=== PATIENT | female | born 2000 | race Caucasian/White ===

== ENCOUNTER 2022-01-25 12:56 | Day surgery (SDC) | payer OTHER, SELFPAY ==
[2022-01-25] VITALS (9 sets, daily range): BP systolic 111–155; BP diastolic 63–86; PULSE 73–119; RESP 12–22; TEMP 36.2–36.9; O2SAT 97–100
--- NOTE | ~2022-01-25 | CT_ITS ---
EXAMINATION: CT abdomen pelvis w con DATE: 01/25/2022 15:06 INDICATION: Abdominal pain radiating to right side. Right lower quadrant abdominal pain, nausea and v omiting TECHNIQUE: Computed tomography (CT) of the abdomen and pelvis was performed with 100 CC Omnipaque 350 intravenous contrast. Automated exposure control and iterative reconstruction technique were employe d. Exam dose: 269.73 mGy-cm total exam DLP. COMPARISON: None. FINDINGS: The lung bases are clear of infiltrate or consolidation. Normal heart size. No pericardial or pleural effusion. The liver, gallbladder, bile ducts, spleen, pancreas, pancreatic duct, and adrenal glands and kidneys are unremarkable. Normal caliber of the abdominal aorta. No intraperitoneal or retroperitoneal or pe lvic mass lesion or adenopathy or ascites. The urinary bladder and uterus are unremarkable other than some fluid in the endometrial cavity likely related to menstruation.. Bilateral ovarian follicles, t he largest measuring up to 2 cm on the left. Minimal likely physiologic free fluid in the posterior c ul-de-sac. There is a 5 mm appendicolith. There is thickening of the wall of the appendix and appendiceal diamet er up to approximately 8.8 mm. Findings are consistent with acute appendicitis. No appendiceal absces s or intraperitoneal free air is detected. There is a prominent amount of fecal material throughout the rectum and colon. No bowel obstruction o r intraperitoneal free air. Included skeletal structures are unremarkable. IMPRESSION: Appendicolith and acute appendicitis Reviewed, dictated and finalized at [facility]. Reviewed, dictated and finalized at [facility].
[2022-01-25 13:15] LABS: Basophils Absolute Auto 0.1 K/mm3 (0.0-0.1); Basophils Percent Auto 0.6 % (0.2-1.2); Eosinophils Absolute Auto 0.1 K/mm3 (0-0.3); Eosinophils Percent Auto 0.8 % (0-4.4); Hemoglobin 12.8 g/dL (12.0-15.0); Immature Granulocyte Absolute 0.03 K/mm3 (0.00-0.031); Immature Granulocyte Percent A 0.3 % (0-0.5); Lymphocytes Absolute Auto 1.65 K/mm3 (0.9-3.2); Lymphocytes Percent Auto 13.9 % (18.3-44.2); Mean Corpuscular Hemoglobin 26.9 pg (26-34); Mean Platelet Volume 11.1 fl (7.4-10.4); Monocytes Absolute Auto 0.9 K/mm3 (0.1-0.6); Monocytes Percent Auto 7.4 % (2.6-8.5); Neutrophils Absolute Auto 9.2 K/mm3 (1.3-6.7); Platelet Count Result 217 k/mm3 (150-375); Red Blood Count 4.76 M/mm3 (4.2-5.4); Red Cell Distribution Width 14.5 % (11.5-14.5); White Blood Count 11.9 K/mm3 (4.5-10.0)
[2022-01-25 13:23] LABS: Alanine Aminotransferase 12 U/L (6-35); Albumin Level 4.9 g/dL (3.7-5.6); Alkaline Phosphatase 59 U/L (45-116); Anion Gap 9 mmol/L (8-16); Aspartate Amino Transferase 23 U/L (14-36); Bilirubin,Total 0.5 mg/dL (0.2-1.3); Blood Urea Nitrogen 11 mg/dL (8-21); Calcium 9.5 mg/dL (8.9-10.7); Carbon Dioxide 26 mmol/L (22-30); Chloride 99 mmol/L (98-107); Estimated Glomerular Filt Rate > 60; Glucose 103 mg/dL (65-110); Lipase 48 U/L (23-300); Sodium 134 mmol/L (134-143)
[2022-01-25 14:22] LABS: Appearance Urine Slightly Cloudy (Clear); Bilirubin Urine Negative (Negative); Blood Urine Negative (Negative); Color Urine Yellow (Yellow); Glucose Urine UA Negative (Negative); Ketones Urine Negative (Negative); Leukocyte Esterase Ur Negative LEU/UL (Negative); Nitrate Urine Negative (Negative); Protein Urine Negative (Negative); Urobilinogen Urine 0.2 mg/dL (<2.0); pH Urine 7.5 (5.0-9.0)
[2022-01-25 14:30] LABS: Bacteria Urine 2+ /hpf; Mucus Urine Few /lpf; RBC Urine 0-2 /hpf (0-2); Squamous Epithelial Cell Urine Occasional /hpf (Few)
[2022-01-25 14:34] LABS: Add Urine Microscopic? YES
[2022-01-25] MEDS: SODIUM CHLORIDE 0.9% IV 1,000 ML 999 ML IV CONT (14:42)
[2022-01-25] MEDS: MORPHINE SULFATE (*CRX) 4 MG/ML INJ IV PUSH (14:43)
--- NOTE | 2022-01-25 15:45 | ED.ABDPAIN ---
HPI - Abdominal Pain General Chief Complaint: Abdominal Pain Stated Complaint: abd pain Time Seen by Provider: 01/25/22 14:14 History of Present Illness HPI narrative: Patient is a 21-year-old female who presents ER with abdominal pain. Started in the periumbilical area early this morning is more dense right lower quadrant. She has not been hungry. No fevers or chills or sweats. Pain is worse with movement. No diarrhea. Denies urinary frequency urgency or dysuria. Related Data Home Medications Medication Instructions Recorded Confirmed No Home Medications 01/25/22 01/25/22 Allergies Allergy/AdvReac Type Severity Reaction Status Date / Time No Known Allergies Allergy Mild Verified 06/29/17 18:11 Review of Systems Review of Systems: All systems reviewed & are unremarkable except as noted in HPI and below Constitutional: Constitutional: Denies chills and Denies fever(s) Cardiovascular: Cardiovascular: Denies chest pain, Denies rapid heart rate and Denies radiating jaw, neck or arm pain Respiratory: Respiratory: Denies cough and Denies dyspnea Gastrointestinal: Gastrointestinal: Reports abdominal pain, Denies constipation, Denies diarrhea, Denies nausea and Denies vomiting Musculoskeletal: Musculoskeletal: Denies back pain and Denies myalgias PMFSH Past Medical History Medical History (Updated 01/25/22 @ 17:20 by Garo Restrepo MD) Healthy female adult Surgical History Surgical History (Updated 01/25/22 @ 17:20 by Garo Restrepo MD) No history of previous surgery Social History Social History (Updated 01/25/22 @ 17:20 by Garo Restrepo MD) Smoking status: Never smoker Exam Narrative: GENERAL: Well-appearing, well-nourished, and in no acute distress. HEAD: Normocephalic, atraumatic. NECK: Supple. CHEST: Clear to auscultation. No respiratory distress. HEART: Regular rate and rhythm. Normal peripheral pulses. ABDOMEN: Soft, tender palpation right lower quadrant with guarding, positive Rovsing sign, nondistended, normal active bowel sounds. EXTREMITIES: Normal range of motion. No edema. SKIN: Warm, dry, no rash. NEURO: Alert and oriented x3. PSYCH: Normal mood and affect. Course Course Emergency Course: Discussed with Dr. De La O. He will take patient to the OR this evening. Patient aware of plan. She had 2 bites of a kolache at noon with a couple sips of water. Vital Signs Vital signs: Vital Signs Temperature 98.4 F 01/25/22 12:59 Pulse Rate 108 H 01/25/22 12:59 Respiratory Rate 20 01/25/22 12:59 Blood Pressure 155/68 H 01/25/22 12:59 Pulse Oximetry 98 01/25/22 12:59 Oxygen Delivery Room Air 01/25/22 12:59 Temperature 97.2 F L 01/25/22 16:36 Pulse Rate 96 01/25/22 16:36 Respiratory Rate 16 01/25/22 16:36 Blood Pressure 124/68 01/25/22 16:36 Pulse Oximetry 100 01/25/22 16:36 Oxygen Delivery Room Air 01/25/22 16:36 MDM - Abdominal Pain Lab Data Result diagrams: 01/25/22 13:07 01/25/22 13:07 Labs: Lab Results 01/25/22 01/25/22 01/25/22 Range/Units 13:07 13:07 14:16 WBC 11.9 H (4.5-10.0) K/mm3 RBC 4.76 (4.2-5.4) M/mm3 Hgb 12.8 (12.0-15.0) g/dL Hct 40.0 (37.0-47.0) % MCV 84.0 (80-100) fl MCH 26.9 (26-34) pg MCHC 32.0 (32-36) g/dl RDW 14.5 (11.5-14.5) % Plt Count 217 (150-375) k/mm3 MPV 11.1 H (7.4-10.4) fl Immature Gran % (Auto) 0.3 (0-0.5) % Neut % (Auto) 77.0 H (45.5-73.1) % Lymph % (Auto) 13.9 L (18.3-44.2) % [place] % (Auto) 7.4 (2.6-8.5) % Eos % (Auto) 0.8 (0-4.4) % Baso % (Auto) 0.6 (0.2-1.2) % Lymph # (Auto) 1.65 (0.9-3.2) K/mm3 [place] # (Auto) 0.9 H (0.1-0.6) K/mm3 Eos # (Auto) 0.1 (0-0.3) K/mm3 Baso # (Auto) 0.1 (0.0-0.1) K/mm3 Abs Immat Gran (auto) 0.03 (0.00-0.031) K/mm3 Absolute Neuts (auto) 9.2 H (1.3-6.7) K/mm3 Absolute Nucleated RBC 0.0 (0.0-0.012) K/mm3
--- NOTE | 2022-01-25 16:01 | WPDANESEPPF ---
Anes - Initial Pre Proc Eval Procedure: Operation Date: 01/25/22 17:30 Proposed Procedures p Laparoscopic Appendectomy - Oneil De La O DO <Fernando Gaston DO - Last Filed: 02/02/22 09:16> Date/Time: 01/25/22 16:01 <Fernando Gaston DO - Last Filed: 02/02/22 09:16> Pre Op Diagnosis: abd pain <Fernando Gaston DO - Last Filed: 02/02/22 09:16> Patient Data Age: 21 Gender: F Height: 1.57 m Weight: 60.1 kg <Fernando Gaston DO - Last Filed: 02/02/22 09:16> Last Vital Signs Temp 36.9 C 01/25/22 12:59 Pulse 96 01/25/22 14:18 Resp 14 01/25/22 14:18 BP 116/79 01/25/22 14:18 Pulse Ox 97 01/25/22 14:18 O2 Del Method Room Air 01/25/22 12:59 <Fernando Gaston DO - Last Filed: 02/02/22 09:16> Allergies Allergy/AdvReac Type Severity Reaction Status Date / Time No Known Allergies Allergy Mild Verified 06/29/17 18:11 <Fernando Gaston DO - Last Filed: 02/02/22 09:16> Home Medications Medication Instructions Recorded Confirmed Type hydrocodone 5 mg-acetaminophen 325 1 tablet PO Q4H PRN pain #10 tabs 01/25/22 Rx mg tablet <Fernando Gaston DO - Last Filed: 02/02/22 09:16> Laboratory Tests 01/25/22 01/25/22 01/25/22 13:07 13:07 14:16 WBC 11.9 K/mm3 H K/mm3 (4.5-10.0) RBC 4.76 M/mm3 M/mm3 (4.2-5.4) Hgb 12.8 g/dL g/dL (12.0-15.0) Hct 40.0 % % (37.0-47.0) MCV 84.0 fl fl (80-100) MCH 26.9 pg pg (26-34) MCHC 32.0 g/dl g/dl (32-36) RDW 14.5 % % (11.5-14.5) Plt Count 217 k/mm3 k/mm3 (150-375) MPV 11.1 fl H fl (7.4-10.4) Immature Gran % (Auto) 0.3 % % (0-0.5) Neut % (Auto) 77.0 % H % (45.5-73.1) Lymph % (Auto) 13.9 % L % (18.3-44.2) [place] % (Auto) 7.4 % % (2.6-8.5) Eos % (Auto) 0.8 % % (0-4.4) Baso % (Auto) 0.6 % % (0.2-1.2) Lymph # (Auto) 1.65 K/mm3 K/mm3 (0.9-3.2) [place] # (Auto) 0.9 K/mm3 H K/mm3 (0.1-0.6) Eos # (Auto) 0.1 K/mm3 K/mm3 (0-0.3) Baso # (Auto) 0.1 K/mm3 K/mm3 (0.0-0.1) Abs Immat Gran (auto) 0.03 K/mm3 K/mm3 (0.00-0.031) Absolute Neuts (auto) 9.2 K/mm3 H K/mm3 (1.3-6.7) Absolute Nucleated RBC 0.0 K/mm3 K/mm3 (0.0-0.012) Nucleated RBC % 0.0 % % (0.0-0.2) Sodium 134 mmol/L mmol/L (134-143) Potassium 4.0 mmol/L mmol/L (3.4-5.0) Chloride 99 mmol/L mmol/L (98-107) Carbon Dioxide 26 mmol/L mmol/L (22-30) Anion Gap 9 mmol/L mmol/L (8-16) BUN 11 mg/dL mg/dL (8-21) Creatinine 0.60 mg/dL L mg/dL (0.7-1.0) Estim Creat Clear Calc Not Reportable Estimated GFR > 60 (59 - ) Glucose 103 mg/dL mg/dL (65-110) Calcium 9.5 mg/dL mg/dL (8.9-10.7) Total Bilirubin 0.5 mg/dL mg/dL (0.2-1.3) AST 23 U/L U/L (14-36) ALT 12 U/L U/L (6-35) Alkaline Phosphatase 59 U/L U/L (45-116) Total Protein 8.0 g/dL g/dL (6.3-8.6) Albumin 4.9 g/dL g/dL (3.7-5.6) Lipase 48 U/L U/L (23-300) Urine Color Yellow (Yellow) Urine Appearance Slightly cloudy (Clear) Urine pH 7.5 (5.0-9.0) Ur Specific [place] 1.020 (1.001-1.035) Urine Protein Negative mg/dL mg/dL (Negative) Urine Glucose (UA) Negative mg/dL mg/dL (Negative) Urine Ketones Negative mg/dL mg/dL (Negative) Ur Blood (Man) Negative (Negative) Urine Nitrate Negative (Negative) Urine Bilirubin Negative (Negative) Urine Urobilinogen 0.2 mg/dL mg/dL (<2.0) Leukocyte Esterase Rfl Negative SUNDAY/UL SUNDAY/UL (Negative) Urine RBC 0-2 /hpf /hpf
[2022-01-25] MEDS: LACTATED RINGERS 1,000 ML 30 ML IV CONT ×2 (16:37→18:45)
--- NOTE | 2022-01-25 17:41 | PM.IMHP ---
H&P: HPI History of Present Illness Date/Time: 01/25/22 17:41 Chief Complaint: Right lower quadrant pain Narrative: This is a 21-year-old woman who presented to the emergency department this afternoon with complaints of right lower quadrant pain. Her pain started around 2:00 a.m. this morning. She did have some nausea and vomiting as well. Pain was near her umbilicus and then eventually localized to the right lower quadrant. She denies any fevers. She has never experienced symptoms like this in the past. Review of Systems Review of Systems: All systems reviewed & are unremarkable except as noted in HPI and below Constitutional: Constitutional: Denies chills and Denies fever(s) Eyes: Eyes: Denies change in vision ENT: Denies hearing loss, Denies neck pain and Denies sore throat Cardiovascular: Cardiovascular: Denies chest pain and Denies dyspnea Respiratory: Respiratory: Denies cough, Denies dyspnea and Denies wheezing Gastrointestinal: Gastrointestinal: Reports as per HPI Genitourinary: Genitourinary: Denies hematuria and Denies dysuria Musculoskeletal: Musculoskeletal: Denies arthralgias, Denies joint swelling and Denies neck pain Allergic/Immunologic: Allergic/Immunologic: Denies wheezing PMF Past Medical History Medical History (Updated 01/25/22 @ 17:20 by Garo Restrepo MD) Healthy female adult Surgical History Surgical History (Updated 01/25/22 @ 17:20 by Garo Restrepo MD) No history of previous surgery Family History Family History (Updated 01/25/22 @ 17:43 by Oneil De La O DO) Other No significant family history Social History Social History (Updated 01/25/22 @ 17:20 by Garo Restrepo MD) Smoking status: Never smoker Meds Home Medications and Allergies Home Medications Medication Instructions Recorded Confirmed Type No Home Medications 01/25/22 01/25/22 History Allergies Allergy/AdvReac Type Severity Reaction Status Date / Time No Known Allergies Allergy Mild Verified 06/29/17 18:11 Vital Signs Vital Signs - 24 hr 01/25/22 12:59 01/25/22 14:18 01/25/22 16:36 Temperature 36.9 C 36.2 C L Pulse Rate 108 H 96 96 Respiratory Rate 20 14 16 Blood Pressure 155/68 H 116/79 124/68 Pulse Oximetry 98 97 100 Oxygen Delivery Room Air Room Air Exam Const: General: alert; No acute distress Orientation/consciousness: patient oriented x3 Limitations: no limitations HENMT: Head: normocephalic and atraumatic Ears: hearing grossly normal bilaterally General nose exam: Normal external nose present and Normal nares present Mouth: Yes Normal oral and palatal mucosa present and Yes moist mucous membranes Eyes: General: appearance normal, both eyes and all related structures Conjunctivae: conjunctivae normal Sclera: sclerae normal Pupils: Equal, round and reactive pupils present EOM: EOMs intact bilaterally Neck: Neck: normal visual inspection, full ROM, no lymphadenopathy, supple and no JVD Lymphatic: no lymphadenopathy noted Chest: Chest palpation & inspection: normal inspection of the chest Resp: Effort & Inspection: normal respiratory effort and able to speak in complete sentences Auscultation: clear to auscultation bilaterally Percussion: percussion normal Cardio: Jugular venous distension: no JVD Rate: regular rate Rhythm: regular rhythm Heart sounds: S1 normal heart sound present and S2 normal heart sound present Peripheral pulses: Peripheral pulses 2+ throughout GI: Inspection: normal to inspection GI Palp: Yes Soft to palpation, Yes Tenderness to palpation present (GI) (Right lower quadrant), No Guarding due to palpation present (GI), No Hernia present and No Rebound tenderness present Percussion: Yes normal to percussion Auscultation: normal bowel sounds : General: Yes no CVA tenderness Back/Spine/Pelvis: Back: no CVA tenderness Skin: General skin exam: normal color and dry skin Neuro: General: patient oriented
--- NOTE | 2022-01-25 17:45 | WPDHPUPDATE1 ---
History and Physical Update Update Date/Time: 01/25/22 17:45 History and Physical has been reviewed, including an updated exam of the patient. There are NO changes in the patient's condition. Risks, benefits, and alternatives have been discussed and questions answered. Patient agrees to proceed with procedure.
[2022-01-25] MEDS: BUPIVACAINE/EPINEPHRINE 0.25% 50 ML VIAL 30 ML INFILTRATE (17:50)
--- NOTE | 2022-01-25 18:45 | W.PM.PROC2 ---
Procedure Note - Detailed Date of Procedure 01/25/22 Pre-op Diagnosis Acute appendicitis Post-op Diagnosis Same Procedure Performed Laparoscopic appendectomy Surgeon Oneil De La O, DO Anesthesia General and Local (0.5% bupivacaine with epinephrine) Indications This is a 21-year-old woman who presented to the emergency department today with right lower quadrant pain that started early this morning. She has never experienced symptoms like this in the past. CT in the emergency department showed evidence of acute appendicitis with an appendicolith. Discussions were made with the patient about treatment options and decision was made to proceed with urgent laparoscopic appendectomy, possible open. Findings Laparoscopic appendectomy was performed. The appendix appeared dilated and inflamed, but the base of the appendix appeared healthy and viable. There was no evidence of perforation or abscess. The appendix was removed and sent to the lab for pathology. Description of Procedure Procedure as well as risks, benefits, and alternatives were explained to the patient. The patient agreed to proceed. Written consent was obtained and placed in chart prior to procedure. The patient was brought back to surgical suite. She was placed supine on operating table. Time-out was done to confirm the patient and procedure. The patient was then intubated by the Anesthesia Department. Her abdomen was prepped and draped in sterile fashion using chlorhexidine prep. A 12 mm incision was made at the inferior portion of the umbilicus. Blunt dissection was carried out down to the linea alba. The linea alba was then incised using a 15 blade scalpel. Then bluntly entered into the peritoneal cavity. A 12 mm trocar was then inserted, and carbon dioxide insufflation was used to create a pneumoperitoneum. The camera was inserted and the abdomen was inspected. No immediate abnormalities were identified. The patient was then placed in slight Trendelenburg position and rotated to the left. A 5 mm incision was made in the suprapubic region in midline and a 5 mm trocar was inserted under direct visualization. A 5 mm incision was made in the left lower quadrant and a 5 mm trocar was inserted under direct visualization. The right lower quadrant was carefully inspected. The cecum was identified and then this was traced back to the appendix. The appendix was identified and grasped at the mesoappendix and lifted anteriorly. Careful blunt dissection was carried out at the base of the appendix through the mesoappendix using a [place] grasper. An Endo-YASIR 45 mm blue load stapler was then advanced across the base of the appendix and clamped and fired. A white reload was then clamped across the mesoappendix and fired. This freed up our appendix completely. It was then placed in an EndoCatch bag and removed through the umbilical port. The staple lines were then inspected. Hemostasis appeared adequate and the staple lines appeared secure. The area was then irrigated with sterile saline. The pelvis was then carefully inspected and irrigated with sterile saline as well and the remainder of the abdomen was carefully inspected. The patient was then flattened out in bed. One final inspection was made around the abdominal cavity and no other abnormalities were seen. The ports were then removed under direct visualization. The camera was removed and the pneumoperitoneum was released. The fascia of the umbilical incision was reapproximated using an 0 Vicryl [id number] suture. 0.5% bupivacaine with epinephrine was infiltrated locally around each of the incisions. The skin of the incisions was then approximated using 4-0 Monocryl subcuticular suture and Exofin glue was applied on top. The patient was then awakened from anesthesia, extubated, and transferred to Recovery. Estimated Blood Loss 5 Pathology Yes (Appendix) Complications No immediate complications Condition Stable Disposition
[2022-01-25] MEDS: oxyCODONE HCL (*CRX) 5 MG TAB IR PO (20:00)
== END 2022-01-25 20:37 | disposition home or self-care (01) ==
LOC: ANHED 16:04 → ANHSURGERY 16:28
PROVIDERS: Emergency Medicine; Emergency Provider Emergency Medicine; PCP Pediatrics; Visit Provider Surgery
PROC: 0DTJ4ZZ Resection of Appendix, Percutaneous Endoscopic Approach (ICD-10-PCS; CPT 44970; principal; 2022-01-25 17:30)
DX: K35.80 Unspecified acute appendicitis (principal); R10.31 Right lower quadrant pain
CPT/HCPCS: 44970; 36415; 74177; 80053; 81001; 81025; 83690; 85025; 88304; A9270; J0131; J0330; J1100; J2250; J2270; J2405; J2543; J2704; J3010; J7030; J7120; Q9967

== ENCOUNTER 2023-02-23 22:24 | Emergency (ER) | payer OTHER, SELFPAY ==
--- NOTE | ~2023-02-23 | CT_ITS ---
CT of the Abdomen and Pelvis: Indication: Abdominal pain Technique: 2.5 mm axial scans were obtained through the abdomen and pelvis following intravenous adm inistration of 100 cc of Omnipaque 350. Dose reduction technique was used on this scan by utilizing a utomated exposure control and iterative reconstruction technique. The dose-length product (DLP) was 3 03.13 mGy-cm. COMPARISON: 01/25/2022 Findings: Scans through the lung bases are unremarkable. The liver, spleen, pancreas, gallbladder, adrenals and kidneys are within normal limits. No evidence of aortic aneurysm. No lymphadenopathy. No bowel obstruction or bowel wall thickening. Postoperative changes noted in the right lower quadran t. Images through the pelvis were performed. Urinary bladder unremarkable. No abnormal adnexal mass evid ent. No ascites. Impression: No significant abnormalities seen. Reviewed, dictated and finalized at [facility]. Impression: No significant abnormalities seen.
[2023-02-23 23:04] VITALS: BP 135/89; PULSE 100; RESP 20; TEMP 36.4; O2SAT 100
[2023-02-24 04:44] LABS: Basophils Percent Auto 0.4 % (0.2-1.2); Hematocrit 40.4 % (37.0-47.0); Hemoglobin 13.5 g/dL (12.0-15.0); Immature Granulocyte Absolute 0.03 K/mm3 (0.00-0.031); Immature Granulocyte Percent A 0.4 % (0-0.5); Lymphocytes Absolute Auto 0.62 K/mm3 (0.9-3.2); Lymphocytes Percent Auto 8.1 % (18.3-44.2); Mean Corpuscular HGB Conc 33.4 g/dl (32-36); Mean Corpuscular Hemoglobin 28.2 pg (26-34); Mean Corpuscular Volume 84.5 fl (80-100); Mean Platelet Volume 11.9 fl (7.4-10.4); Monocytes Absolute Auto 0.2 K/mm3 (0.1-0.6); Neutrophils Absolute Auto 6.8 K/mm3 (1.3-6.7); Neutrophils Percent Auto 89.1 % (45.5-73.1); Platelet Count Result 196 k/mm3 (150-375); Red Blood Count 4.78 M/mm3 (4.2-5.4); Red Cell Distribution Width 13.8 % (11.5-14.5); White Blood Count 7.7 K/mm3 (4.5-10.0)
[2023-02-24 04:50] LABS: Appearance Urine Turbid (Clear); Bacteria Urine 1+ /hpf; Bilirubin Urine Negative (Negative); Blood Urine Negative (Negative); Color Urine Yellow (Yellow); Glucose Urine UA Negative (Negative); Ketones Urine 4+ mg/dL (Negative); Leukocyte Esterase Ur 1+ LEU/UL (Negative); Nitrate Urine Negative (Negative); Protein Urine 1+ mg/dL (Negative); Specific Grav Ur 1.031 (1.001-1.035); Squamous Epithelial Cell Urine Few /hpf (Few); pH Urine 7.5 (5.0-9.0)
[2023-02-24 04:55] LABS: Alanine Aminotransferase 17 U/L (6-35); Albumin Level 4.7 g/dL (3.5-5.1); Alkaline Phosphatase 56 U/L (38-126); Anion Gap 9 mmol/L (8-16); Aspartate Amino Transferase 28 U/L (14-36); Bilirubin,Total 0.5 mg/dL (0.2-1.3); Blood Urea Nitrogen 9 mg/dL (7-17); Calcium 9.1 mg/dL (8.4-10.2); Carbon Dioxide 24 mmol/L (22-30); Chloride 104 mmol/L (98-107); Estimated CRCL calculation 118 ml/min; Estimated Glomerular Filt Rate > 60; Glucose 115 mg/dL (65-110); Lipase 49 U/L (23-300); Potassium 4.2 mmol/L (3.4-5.0); Sodium 137 mmol/L (137-145)
[2023-02-24] MEDS: ONDANSETRON INJ 4 MG/2 ML VIAL IV PUSH (04:57)
[2023-02-24] MEDS: KETOROLAC 15 MG/ML VIAL (*BKC) IV PUSH (04:57)
[2023-02-24 04:59] LABS: Add Urine Microscopic? YES
[2023-02-24] MEDS: LACTATED RINGERS 1,000 ML 999 ML IV CONT (04:59)
[2023-02-24 05:02] VITALS: BP 124/86; PULSE 82; RESP 15; O2SAT 100
--- NOTE | 2023-02-24 05:08 | ED.ABDPAIN ---
HPI - Abdominal Pain General Chief Complaint: Abdominal Pain Stated Complaint: Abd pain, nausea Time Seen by Provider: 02/24/23 04:32 Source: patient and family (mother) Limitations: no limitations History of Present Illness MD elicited complaint: abdominal pain Pertinent past history: none Onset (ago): day(s) (Tuesday) Pain Consistency: constant (today) and intermittent (started) Location: RLQ, LLQ and suprapubic Severity: mild Quality: cramping Radiation: none Migration to: no migration Exacerbating factors: nothing Relieving factors: nothing Associated symptoms: denies other symptoms, nausea, vomiting (NBNB) and other (Denies vaginal bleeding, vaginal discharge, dysuria, hematuria, urinary urgency, urinary frequency, diarrhea, constipation, chest pain, shortness of breath.) Related Data Allergies Allergy/AdvReac Type Severity Reaction Status Date / Time No Known Allergies Allergy Mild Verified 02/23/23 23:13 Review of Systems Review of Systems: A 10 system review of systems was completed on the patient and is negative except for what is stated in the HPI. Nursing and ancillary documentation was reviewed. [facility] Past Medical History Medical History (Updated 02/25/23 @ 00:01 by Jayme Payne) Healthy female adult Surgical History Surgical History (Updated 01/25/22 @ 17:20 by Garo Restrepo MD) No history of previous surgery Family History Family History (Updated 01/25/22 @ 17:43 by Oneil De La O DO) Other No significant family history Social History Social History (Updated 01/25/22 @ 17:20 by Garo Restrepo MD) Smoking status: Never smoker Comments At time of signature, I have reviewed and agree with nursing past medical, surgical, social and family history unless otherwise noted. Please see the nursing chart for further information. There is no relevant family history pertinent to the presenting complaint. Exam Narrative: CONST: No acute distress. HENMT: Head is normocephalic and atraumatic. Dry mucous membranes. No posterior oropharynx erythema. EYES: No conjunctival icterus, injection, or pallor. PERRL. NECK: No meningeal signs. RESP: Able to speak in full sentences. Normal respiratory effort. CTAB. CARDIO: Regular rate. Regular rhythm. 2+ DP and radial pulses bilaterally. GI: Nondistended. Mild suprapubic tenderness to palpation. Soft. No rebound or guarding or rigidity. Negative Sainz's. No McBurney point TTP. Negative Rovsing's and Psoas and Obturator. No palpable masses or hernias. : No CVA tenderness to palpation. SKIN: No rashes or lesions noted on exposed skin. NEURO: Oriented x3. Moves all extremities. EXTREM: No pedal edema. PSYCH: Normal affect. Course Vital Signs Vital signs: Vital Signs Temperature 97.6 F 02/23/23 23:04 Pulse Rate 100 02/23/23 23:04 Respiratory Rate 20 02/23/23 23:04 Blood Pressure 135/89 02/23/23 23:04 Pulse Oximetry 100 02/23/23 23:04 Oxygen Delivery Room Air 02/23/23 23:04 Temperature 97.6 F 02/23/23 23:04 Pulse Rate 110 H 02/24/23 08:41 Respiratory Rate 18 02/24/23 08:41 Blood Pressure 125/83 02/24/23 08:41 Pulse Oximetry 99 02/24/23 08:41 Oxygen Delivery Room Air 02/23/23 23:04 MDM - Abdominal Pain MDM Narrative Medical decision making narrative: Patient presents with the above complaint. Initial vitals are remarkable for no significant abnormalities. Patient appears in no acute distress. Physical examination notable for mild suprapubic TTP. Patient ordered IVF 1L bolus of LR, Zofran 4 mg IVP, Toradol 15 mg IVP, laboratory analysis. Shared decision making performed to avoid CT radiation exposure and patient was originally on board, but later changed her mind and decided to proceed with CT imaging despite my low concern for acute process. Patient failed PO challenge when she tried to consume an entire cup of water. Patient instructed to go slowly. Patient
[2023-02-24 07:13] VITALS: BP 131/83; PULSE 86; RESP 15; O2SAT 100
[2023-02-24] MEDS: METOCLOPRAMIDE HCL INJ 10 MG/2 ML VIAL IV PUSH (07:41)
[2023-02-24] MEDS: FAMOTIDINE 20 MG/2 ML VIAL IV PUSH (07:45)
[2023-02-24 08:41] VITALS: BP 125/83; PULSE 110; RESP 18; O2SAT 99
== END 2023-02-24 08:42 | disposition home or self-care (01) ==
LOC: ANHED 02-24 05:41
PROVIDERS: Emergency Provider Student in an Organized Health Care Education/Training Program; PCP Internal Medicine
DX: N39.0 Urinary tract infection, site not specified (principal); R10.32 Left lower quadrant pain; R10.31 Right lower quadrant pain; R11.2 Nausea with vomiting, unspecified
CPT/HCPCS: 36415; 74177; 80053; 81001; 81025; 83690; 85025; 87086; 96361; 96365; 96375; 99284; J0696; J1885; J2405; J2765; J7120; Q9967

== ENCOUNTER 2025-02-25 08:23 | Emergency (ER) | payer OTHER, SELFPAY ==
--- OUTSIDE RECORDS SUMMARY | 2025-02-25 08:39 | XMS_ITS | Clinical Summary ---
Author Organization [facility] Address [address] [place] [address] Care Team Providers Care Outside Salesman Name Role Phone Mara Yu MD Primary Care Provider [phone] Source Comments [facility] [employer],non-owned Affiliates and Associated Physician Practices is amultiple site organization consisting of ambulatory clinics and hospital sitesin [place], [place], [place] and [place]. This disclosure is being madepursuant to the Care Everywhere program and may not contain all information available regarding this patient. Last updated 18.[facility] [employer] Allergies No known active allergies Medications * Be aware that medications may not be up to date on this document. Alwaysverify current medications with the patient. ibuprofen (ADVIL; MOTRIN) 100 MG/5ML SUSP suspensionIndica tions:Fever Take 200 mg by mouth every 6 hours as needed. 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 Gender Identity Not on file Sexual Orientation Not on file Last Filed Vital Signs Vital Sign Reading Time Taken Comments Blood Pressure 112/73 02/18/2011 5:55 PM CDT Pulse 136 02/18/2011 9:10 PM CDT Temperature 40.4 C (104.8 F) 02/18/2011 9:10 PM CDT Respiratory Rate 28 02/18/2011 9:10 PM CDT Oxygen Saturation - - Inhaled Oxygen Concentration - - Weight 23.6 kg (52 lb 0.5 oz) 02/18/2011 5:55 PM CDT Height - - Body Mass Index - - Plan of Treatment Health Maintenance Due Date Last Done Comments HIV SCREENING 2017 HPV VACCINE (1 - 3-dose series) 2017 CHLAMYDIA/GONORRHEA SCREENING 2018 MENINGOCOCCAL (Group B) VACC INE SHARED DECISION-MAKING (1 of 2 - Standard) 2018 HEPATITIS C SCREENING 10/15/2020 DTAP/TDAP/TD VACCINES (1 - Tdap) 2021 HEPATITIS B VACCINE (1 of 3 - 19+ 3-dose series) 2021 DEPRESSION SCREENING 06/20/2024 COVID-19 VACCINE (1 - 2023-2 5 season) 2025 INFLUENZA VACCINE (#1) 2025 ZOSTER VACCINE (1 of 2) 2052 HIB VACCINE Aged Out No longer eligi ble based on patient's age to complete this topic MENINGOCOCCAL GROUPS A/C/Y/W VACCINE Aged Out No longer eligible b ased on patient's age to complete this topic PNEUMOCOCCAL VACCINE Aged Out No long er eligible based on patient's age to complete this topic Insurance [facility] Care Teams Outside Salesman Relationship Specialty Start Date End Date Mara Yu MD [address] [place], [place] [id number] PCP - General 02/18/11
[2025-02-25 08:42] VITALS: BP 132/99; PULSE 92; RESP 18; TEMP 36.6; O2SAT 100
--- NOTE | 2025-02-25 08:49 | ED.WOUNDLAC ---
HPI - Wound/Laceration General Chief Complaint: Wound/Laceration Stated Complaint: dog bite Time Seen by Provider: 02/25/25 08:50 Source: patient, family, RN notes reviewed and old records reviewed Mode of arrival: ambulatory Limitations: no limitations History of Present Illness HPI narrative: 24 year old female who presents to [facility] care with complaints of being bit by dog this morning when she was waking it up from anesthesia at about 0500 this morning after having caesarean section. Patient reports that dog was just dysphoric and prior to procedure had been docile and calm. Patient has puncture wound to the right web space adjacent to the index finger and 3rd finger which measures 1cm with bleeding controlled. She also has puncture wound to the left ulnar wrist area 0.75 cm with bleeding controlled. Patient also has some superficial abrasions to the dorsal aspect of right hand and to tissue surround wrist. Patient reports that her tetanus is not up to date. She also states that dog had not been vaccinated for rabies and has been put in quarantine. Patient reports that she cleansed wound areas with soap and water and dressings applied at work after incident. Onset (ago): hour(s) ( at 0500 this morning) Location: other (right hand and left wrist) Place: work (vet office) Patient tetanus UTD: No Treatments prior to arrival: bandage (cleansed and bandages) Related Data Allergies Allergy/AdvReac Type Severity Reaction Status Date / Time No Known Allergies Allergy Mild Verified 02/25/25 08:42 Review of Systems Review of Systems: CONSTITUTIONAL: Denies fever, chills, or sweats. CARDIOVASCULAR: Denies chest pain, palpitations, or edema. RESPIRATORY: Denies cough or dyspnea. SKIN: Reports dog bites which occurred at work this morning at around 0500 to left hand and to left wrist area with superficial abrasions noted along top of right hand and left wrist MUSCULOSKELETAL: Denies musculoskeletal pain NEUROLOGIC: Denies numbness, or weakness. All systems reviewed & are unremarkable except as noted in HPI and below PMFSH Past Medical History Medical History Healthy female adult Surgical History Surgical History History of appendectomy Family History Family History Other No significant family history Social History Social History Smoking status: Never smoker Alcohol intake: current Alcohol use details: social Substance use type: does not use Living arrangements: with family Gender identity (if verbalized by the patient): Female Comments At time of signature, agree with nursing past medical, surgical, social and family history. There is no relevant family history pertinent to the presenting complaint Exam Narrative: GENERAL: Well-appearing, well-nourished, and in no acute distress. HEAD: Normocephalic, atraumatic. NECK: Supple. no lymphadenopathy CHEST: Clear to auscultation. No respiratory distress.SO2 100% on room air HEART: Regular rate and rhythm. No murmur heard. Normal peripheral pulses. EXTREMITIES: Normal range of motion. No edema. SKIN: Warm, dry, no rash. Reports dog bites, 1cm to right hand near web space between index and 3rd finger with bleeding controlled, puncture site 0.75 to left ulnar aspect of left wrist area with bleeding controlled. Patient has some superficial abrasions across top of right hand and to the left wrist area with no drainage.. NEURO: No focal deficits. Alert and oriented x3. Course Course Level of Care: Express Care Visit Vital Signs Vital signs: Vital Signs Temperature 36.6 C 02/25/25 08:42 Pulse Rate 92 02/25/25 08:42 Respiratory Rate 18 02/25/25 08:42 Blood Pressure 132/99 H 02/25/25 08:42 Pulse Oximetry 100 02/25/25 08:42 Oxygen Delivery Room Air 02/25/25 08:42 Temperature 36.6 C 02/25/25 08:42 Pulse Rate 92 02/25/25 08:42 Respiratory Rate 18 02/25/25 08:42 Blood Pressure 132/99 H 02/25/25 08:42 Pulse Oximetry 100 02/25/25 08:42 Oxygen Delivery Room Air 02/25/25 08:42 reviewed MDM - Wound/Laceration MDM Narrative Medical decision making narrative: Wound explored for foreign body and copious irrigation provided with no evidence of FB. Discussed the potential of retained foreign body with the patient and signs/symptoms that should prompt the patient to immediately go to the ED for reevaluation. The wound was explored and no foreign bodies were found. There was no evidence of tendon or nerve lacerations. The wound was closed per procedure note. A sterile dressing was then applied and anticipatory guidance was provided. Tetanus prophylaxis was given no signs of reaction. wounds cleansed with wound care solution and triple antibiotic applied and covered with Telfa and Coban Differential Diagnosis Differential diagnosis: Likely laceration, abrasion, avulsion of skin and other (dog bite right hand and left wrist area) Medical Records Attestation: I reviewed the patient's medical records. Critical Care Time Critical Care Time Critical Care Time: No Discharge Plan Discharge Clinical Impression: Dog bite of arm, Dog bite of right hand Patient Disposition: Home Condition: Stable Instructions: Antibiotic Form, Animal Bite (ED), Acute Wounds (ED) Additional Instructions: Cleanse wounds twice daily with either liquid dial soap or Hibiclens soap apply Mupirocin ointment and dressings of choice watch for increasing infection--redness, swelling, drainage or fevers Tylenol or Ibuprofen for any fever or pain follow up with PCP in 7-10 days for a wound check recheck if develop fever, chills, increasing symptom Go to the ER if your symptoms become worse of if ANY new symptoms develop Contact [facility] in regards to rabies protocol dog has been placed in quarantine. If your symptoms persist, change or worsen significantly before you can contact your personal physician then please, without delay, go to the emergency department for further evaluation. Follow-up with PCP in 7-10 days or sooner if needed Follow up with PCP soon in regards to your blood pressure which is elevated above threshold for referral. Blood pressure above 120/80 may indicate pre-hypertension.132/99 Antibiotic as prescribed till completed take with food and recommend probiotic while taking this antibiotic Patient Language: Thai Prescriptions: New amoxicillin-pot clavulanate 875-125 mg tablet 1 tablet PO Q12H Qty: 20 0RF Rx Instructions: take with food mupirocin [Centany] 2 % ointment 1 applic topical BID Qty: 22 0RF Rx Instructions: apply twice daily to puncture wounds after cleansing and rinsing prior Follow-up/Referrals: PHYSICIAN,AZURE ARCHITECT [Primary Care Provider, Internal Medicine] Time of Disposition: 09:10 Quality Soumya Coma Scale Eyes: Open Verbal: Oriented and Alert Motor: Follows Commands Soumya Coma Total Score: 15
[2025-02-25] MEDS: TETANUS,DIPHTHERIA,AC PERTUSSIS ADULT (0.5 ML) BOOSTRIX IM (09:00)
== END 2025-02-25 09:15 | disposition home or self-care (01) ==
PROVIDERS: Emergency Provider Registered Nurse; Referring Provider Emergency Medicine
DX: S61.431A Puncture wound without foreign body of right hand, initial encounter (principal); S61.532A Puncture wound without foreign body of left wrist, initial encounter; W54.0XXA Bitten by dog, initial encounter; Y99.0 Civilian activity done for income or pay; Z23 Encounter for immunization
CPT/HCPCS: 90471; 90715; 99213; G0463